=== PATIENT | female | born 1985 | race Caucasian/White ===

== ENCOUNTER 2018-04-27 21:22 | Observation (INO) | payer OTHER, SELFPAY ==
[~2018-04-27 21:22] MED LIST: ISOVUE-370 76%-LOCM 1 ML ONE
[2018-04-27 21:47] LABS: #Basophils 0.1 thou/uL (0.0-0.2); #Eosinphils 0.2 thou/uL (0.0-0.7); #Lymphocytes 2.9 thou/uL (1.20-3.40); #Monocytes 1.3 thou/uL (0.11-0.59); %Basophils 1.1 % (0.0-1.0); %Eosinophils 1.2 % (0.0-10.0); %Lymphocytes 21.4 % (21.0-51.0); %Monocytes 9.9 % (0.0-10.0); %Neutrophils 66.4 % (42.0-75.0); Hemoglobin 15.3 g/dL (12.0-16.0); Mean Corpuscular HGB CONC 33.3 g/dL (32.0-36.0); Mean Corpuscular Hemoglobin 32.1 pg (27.0-31.0); Mean Corpuscular Volume 96.3 fL (78.0-98.0); Mean Platelet Volume 6.7 fL (7.4-10.4); Platelet Count 368 thou/uL (130-400); RBC Distribution Width 12.4 % (11.5-14.5); Red Blood Cell (RBC) Count 4.78 mill/uL (4.20-5.40); White Blood Cell (WBC) Count 13.5 thou/uL (4.8-10.8)
[2018-04-27 21:52] LABS: BHCG - Serum Negative (NEGATIVE); Pregs Control Background? CLEAR/WHITE (CLR/WHITE); Pregs Control Bar Appear? YES (CONTROL BAR)
[2018-04-27] MEDS ORDERED: Morphine 10 MG/ML VIAL ONE (21:54)
[2018-04-27 22:08] LABS: ALT (SGPT) 56 U/L (8-55); AST (SGOT) 62 U/L (5-34); Albumin 4.2 g/dL (3.5-5.0); Alkaline Phosphatase 102 U/L (40-150); Anion Gap 15 mmol/L (10-20); BUN (Urea Nitrogen) 12 mg/dL (7.0-18.7); Bilirubin, Total 0.4 mg/dL (0.2-1.2); Calc. Creatinine Clearance 0 mL/min (70-130); Calcium 10.3 mg/dL (7.8-10.44); Carbon Dioxide 19 mmol/L (22-29); Chloride 106 mmol/L (98-107); Estimated GFR-MDRD 68; Globulin 3.2 g/dL (2.4-3.5); Glucose 104 mg/dL (70-105); Lipase 52 U/L (8-78); Protein, Total 7.4 g/dL (6.0-8.3); Sodium 137 mmol/L (136-145)
[2018-04-27 22:15] LABS: Potassium 2.9 mmol/L (3.5-5.1)
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
[2018-04-27 22:43] LABS: Bilirubin Negative (Negative); Blood, Urine Moderate (Negative); Clarity TURBID (Clear); Glucose, Urine (Dipstick) Negative (Negative); Leukocyte Moderate (Negative); Nitrite Negative (Negative); Protein, Urine (Dipstick) Negative (Neg-Trace); Specific Gravity, Urine 1.019 (1.002-1.036); Urobilinogen 0.2 mg/dL (0.2-1.0)
[2018-04-27 22:45] LABS: Bacteria/HPF 1+ HPF (None Seen); Pathc Cast-AUWi Flag 1.74 (0-2.49); RBC/HPF 21-50 HPF (0-3)
[2018-04-27 22:54] LABS: Crystals/HPF 3+ AMORPH PHOS HPF (Negative); Hyaline Casts/LPF 0-3 HYALINE CAST LPF (0-3 Hyaline)
--- NOTE | 2018-04-27 22:54 | CT ---
CT OF CHEST PERFORMED WITH CONTRAST ENHANCEMENT CT OF ABDOMEN AND PELVIS PERFORMED WITH CONTRAST ENHANCEMENT CT OF THORACIC AND LUMBAR SPINE PERFORMED WITH CONTRAST ENHANCEMENT: 04/27/18 HISTORY: Diffuse pain with pain more localized to right hip region. The lungs are clear of any infiltrative process. There is no pneumothorax or pleural effusion. No rib fractures are identified. The thoracic aorta is normal in caliber. No mediastinal hematoma. CT OF ABDOMEN PERFORMED WITH CONTRAST ENHANCEMENT: Focal fatty change of the liver adjacent to the falciform ligament is noted. The spleen shows a well defined linear area seen along the posterior aspect of the spleen. This could just be developmental. It is difficult to totally exclude the possibility of a small splenic laceration. I do not see any fl uid or other findings that would suggest that this is acute. The pancreas and gallbladder regions are unremarkable. The right and left adrenal glands and right and left kidneys are normal in size. Nonobstructing punct ate left renal calculi are noted. There is no significant periaortic or mesenteric adenopathy. There is a small crescent shaped area of decreased attenuation which is directly posterior to the superior mesenteric artery and vein. This does not have the appearance of adenopathy and would raise the possi bility of a subtle vascular injury. There is contrast within both the artery and vein at this level w ithout signs of occlusion. Questionable slight tapering to the superior mesenteric artery at this lev el could be related to some spasticity. I do not see any definite signs that would suggest a dissecti on. I do not see any signs of any definite bowel wall injury. This extends over an approximately 4 cm segment. No mesenteric fat stranding associated with this. CT OF PELVIS PERFORMED WITH CONTRAST ENHANCEMENT: Trace free fluid is noted. Follicles are seen involving both adnexa. A partially collapsed right foll icle. The pelvic ring is intact without evidence of fracture. No hip fractures identified. CT OF THORACIC SPINE: Unremarkable. CT OF LUMBAR SPINE: Unremarkable. IMPRESSION: 1. Subtle well defined linear area along the posterior cortex of the spleen. I would tend to fav or this is a developmental finding but a tiny splenic laceration would be a consideration. However, I see no ancillary findings to support this. This extends approximately 1 cm into the substance of the spleen. 2. Subtle crescent shaped low attenuation area posterior to the superior mesenteric artery and v ein, although I do not see any other ancillary findings. This would be suspicious for a small bleed, possibly venous in origin. There is an area where the distal portion of superior mesenteric artery is somewhat narrowed. It could be related to spasticity. I do not see any definite signs of dissection and no evidence for occlusion. Findings telephoned to Dr. Day at 2200 hours. POS: [place]
[2018-04-28] MEDS ORDERED: Ondansetron ODT 4 MG TAB PO PRN (00:13)
[2018-04-28] MEDS ORDERED: Dextrose 5% in Water 1,000 ML IV PRN (00:13)
[2018-04-28] MEDS ORDERED: Acetaminophen 1,000 MG in Premix Bag 1 BAG IVPB SCH (00:13)
[2018-04-28] MEDS ORDERED: Dextrose 50% Abboject 50 ML SYRINGE SLOW IVP PRN (00:13)
[2018-04-28] MEDS ORDERED: traMADol HCl 50 MG TAB PO PRN (00:13)
[2018-04-28] MEDS ORDERED: Ketorolac Tromethamine 30 MG/ML VIAL IVP SCH (00:13)
[2018-04-28] MEDS ORDERED: Ondansetron HCl/PF 4 MG/2 ML Vial IVP PRN (00:13)
[2018-04-28] MEDS ORDERED: hydrALAZINE 20 MG/ML VIAL SLOW IVP PRN (00:13)
[2018-04-28] MEDS: Ibuprofen 600 MG TAB PO SCH ×2 (00:51→09:13)
[2018-04-28] MEDS: Sodium Chloride 0.9% 1,000 ML IV SCH ×2 (00:55→09:15)
[2018-04-28 01:12] LABS: Hemoglobin 14.5 g/dL (12.0-16.0)
[2018-04-28] MEDS: traMADol HCl 50 MG TAB PO PRN ×3 (03:37→15:09)
[2018-04-28 04:10] VITALS: BMI 22.4
[2018-04-28] MEDS: Acetaminophen 500 MG TAB PO SCH ×2 (05:26→12:58)
[2018-04-28] MEDS: Cyclobenzaprine 10 MG TAB PO PRN ×2 (05:32→12:58)
[2018-04-28 05:48] LABS: #Basophils 0.1 thou/uL (0.0-0.2); #Eosinphils 0.2 thou/uL (0.0-0.7); #Lymphocytes 2.9 thou/uL (1.20-3.40); #Monocytes 1.1 thou/uL (0.11-0.59); #Neutrophils 7.8 thou/uL (1.40-6.50); %Basophils 0.6 % (0.0-1.0); %Eosinophils 1.7 % (0.0-10.0); %Lymphocytes 24.1 % (21.0-51.0); %Monocytes 9.2 % (0.0-10.0); %Neutrophils 64.5 % (42.0-75.0); Mean Corpuscular HGB CONC 33.2 g/dL (32.0-36.0); Mean Corpuscular Hemoglobin 32.4 pg (27.0-31.0); Mean Corpuscular Volume 97.8 fL (78.0-98.0); Mean Platelet Volume 6.7 fL (7.4-10.4); Platelet Count 315 thou/uL (130-400); RBC Distribution Width 12.4 % (11.5-14.5); Red Blood Cell (RBC) Count 4.61 mill/uL (4.20-5.40); White Blood Cell (WBC) Count 12.2 thou/uL (4.8-10.8)
[2018-04-28 05:49] LABS: Hemoglobin 14.9 g/dL (12.0-16.0)
[2018-04-28 06:36] LABS: Anion Gap 12 mmol/L (10-20); BUN (Urea Nitrogen) 9 mg/dL (7.0-18.7); Calc. Creatinine Clearance 85 mL/min (70-130); Calcium 8.7 mg/dL (7.8-10.44); Carbon Dioxide 21 mmol/L (22-29); Chloride 106 mmol/L (98-107); Estimated GFR-MDRD 82; Glucose 85 mg/dL (70-105); Potassium 3.5 mmol/L (3.5-5.1); Sodium 135 mmol/L (136-145)
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
[2018-04-28] MEDS ORDERED: Famotidine 20 MG TAB PO SCH (09:00)
[2018-04-28 11:31] VITALS: BP 111/77; TEMP 98.2
[2018-04-28 12:07] LABS: Hemoglobin 13.7 g/dL (12.0-16.0)
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
== END 2018-04-28 15:12 | disposition home or self-care (01) ==
LOC: ERS 21:22 → SURG B 22:40
PROVIDERS: ADMIT Surgery; ATTEND Surgery
DX: R10.9 Unspecified abdominal pain (principal); R93.5 Abnormal findings on diagnostic imaging of other abdominal regions, including retroperitoneum; S30.0XXA Contusion of lower back and pelvis, initial encounter; G89.11 Acute pain due to trauma; R20.2 Paresthesia of skin; F17.210 Nicotine dependence, cigarettes, uncomplicated; V89.0XXA Person injured in unspecified motor-vehicle accident, nontraffic, initial encounter
CPT/HCPCS: 36415; 71260; 72125; 74177; 80048; 80053; 81003; 81015; 83690; 84703; 85014; 85018; 85025; 86850; 86900; 86901; 94760; 96361; 96365; 96374; 96375; G0378; G0390; J0131; J1885; J2270; J2405